=== PATIENT | female | born 1965 | race Caucasian/White ===

== ENCOUNTER → 2016-11-26 | Outpatient (CLI) | payer BC ==
[~2016-11-26] MED LIST: CITA20TA4 PO; DEPA500T2 PO; MAXA10TA14 PO; OXYC1TAB23 PO; REQU2TAB3 PO; VITA200038 PO
--- NOTE | 2016-11-26 11:10 | REP ---
LUMBAR SPINE, FIVE VIEWS: HISTORY: Lumbago. There is no acute fracture or subluxation. The L4-5 and L5-S1 intervertebral discs are decreased in height consistent with disc degeneration. The facet joints are normal in appearance. IMPRESSION: Degenerative change as described above. Signed by Don Salinas MD 11/26/2016 11:12 A
== END ==
LOC: M WUC 10:24
PROVIDERS: ATTEND Physician Assistant
DX: M54.5 Low back pain (principal)

== ENCOUNTER → 2017-08-13 | Outpatient (REF) | payer BC ==
[2017-08-13 12:55] LABS: TOTAL 25(OH) VITAMIN D 19.5 NG/ML (30.0-100.0)
[2017-08-13 12:57] LABS: BASO % 0.1 % (0.0-1.0); HEMATOCRIT 40.7 % (36.0-47.0); HEMOGLOBIN 13.3 g/dl (12.0-16.0); IMMATURE GRANULOCYTE % 0.6 % (0-3.0); LYMPH # 1.7 10^3/uL (1.5-4.5); LYMPH % 13.8 % (24.0-44.0); MEAN CORPUSCULAR HEMOGLOBIN 27.1 pg (27.0-33.0); MEAN CORPUSCULAR HGB CONC 32.7 g/dl (32.0-36.5); MEAN CORPUSCULAR VOLUME 83.1 fl (80.0-96.0); MONO # 0.3 10^3/uL (0.0-0.8); MONO % 2.7 % (0.0-5.0); NEUTROPHILS # 10.1 10^3/uL (1.8-7.7); NEUTROPHILS % 82.8 % (36.0-66.0); PLATELET COUNT, AUTOMATED 274 10^3/uL (150-450); RED CELL DISTRIBUTION WIDTH 12.9 % (11.5-14.5); WHITE BLOOD COUNT 12.2 10^3/uL (4.0-10.0)
[2017-08-13 13:13] LABS: ALBUMIN 3.8 GM/DL (3.2-5.2); ALKALINE PHOSPHATASE 89 U/L (45-117); ALT/SGPT 22 U/L (12-78); ANION GAP 13 MEQ/L (8-16); AST/SGOT 15 U/L (7-37); BILIRUBIN,TOTAL 0.4 MG/DL (0.2-1.0); BLOOD UREA NITROGEN 13 MG/DL (7-18); CALCIUM LEVEL 9.4 MG/DL (8.5-10.1); CARBON DIOXIDE LEVEL 23 MEQ/L (21-32); CHLORIDE LEVEL 104 MEQ/L (98-107); CHOLESTEROL LEVEL 267 MG/DL (<200); CHOLESTEROL RISK RATIO 3.869 (<5); CREATININE FOR GFR 0.74 MG/DL (0.55-1.30); GLOMERULAR FILTRATION RATE > 60.0 (>51); GLUCOSE, FASTING 102 MG/DL (70-100); HDL CHOLESTEROL 69 MG/DL (>40); LDL CHOLESTEROL 174.4 MG/DL (<100); NON-HDL-C 198 MG/DL; POTASSIUM SERUM 4.6 MEQ/L (3.5-5.1); SODIUM LEVEL 140 MEQ/L (136-145); TOTAL PROTEIN 7.6 GM/DL (6.4-8.2); TRIGLYCERIDES LEVEL 118 MG/DL (<150); VALPROIC ACID (DEPAKOTE) 22.8 UG/ML (50.0-100.0)
== END ==
LOC: M LABDRAW1 10:39
DX: F43.23 Adjustment disorder with mixed anxiety and depressed mood (principal); E78.2 Mixed hyperlipidemia; G25.81 Restless legs syndrome; E03.9 Hypothyroidism, unspecified; E55.9 Vitamin D deficiency, unspecified
CPT/HCPCS: 84443

== ENCOUNTER 2017-10-13 14:45 | Emergency (ER) | payer BC ==
[2017-10-13] MEDS: PERCOCET 5MG/325MG TAB PO (15:36)
== END 2017-10-13 17:10 | disposition home or self-care (01) ==
LOC: M ED 14:45
DX: M79.641 Pain in right hand (principal); G43.909 Migraine, unspecified, not intractable, without status migrainosus; E78.00 Pure hypercholesterolemia, unspecified; Z79.899 Other long term (current) drug therapy; Z88.2 Allergy status to sulfonamides
CPT/HCPCS: 73110

== ENCOUNTER 2018-03-02 18:18 | Emergency (ER) | payer BC ==
[2018-03-02 18:55] LABS: HEMATOCRIT 39.5 % (36.0-47.0); HEMOGLOBIN 13.2 g/dl (12.0-15.5); MEAN CORPUSCULAR HEMOGLOBIN 27.1 pg (27.0-33.0); MEAN CORPUSCULAR HGB CONC 33.4 g/dl (32.0-36.5); MEAN CORPUSCULAR VOLUME 81.1 fl (80.0-96.0); PLATELET COUNT, AUTOMATED 261 10^3/uL (150-450); RED BLOOD COUNT 4.87 10^6/uL (4.00-5.40); RED CELL DISTRIBUTION WIDTH 13.4 % (11.5-14.5)
[2018-03-02 18:56] LABS: ADD MANUAL DIFFER YES; DIFF SLIDE NUMBER 144; POSITIVE DIFF POS FLAG
[2018-03-02 18:58] LABS: INR 0.89; PROTHROMBIN TIME 12.1 SECONDS (12.1-14.4)
[2018-03-02 19:10] LABS: ALBUMIN 4.1 GM/DL (3.2-5.2); ALBUMIN/GLOBULIN RATIO 1.05 (1.00-1.93); ALKALINE PHOSPHATASE 107 U/L (45-117); ALT/SGPT 34 U/L (12-78); ANION GAP 9 MEQ/L (8-16); AST/SGOT 16 U/L (7-37); BILIRUBIN,DIRECT 0.1 MG/DL (0.0-0.2); BILIRUBIN,TOTAL 0.5 MG/DL (0.2-1.0); BLOOD UREA NITROGEN 12 MG/DL (7-18); CALCIUM LEVEL 8.9 MG/DL (8.5-10.1); CARBON DIOXIDE LEVEL 26 MEQ/L (21-32); CHLORIDE LEVEL 106 MEQ/L (98-107); CPK CREATINE PHOSPHOKINASE 150 U/L (26-192); CREATININE FOR GFR 0.75 MG/DL (0.55-1.30); GLOMERULAR FILTRATION RATE > 60.0 (>51); GLUCOSE, FASTING 84 MG/DL (70-100); LIPASE 229 U/L (73-393); POTASSIUM SERUM 3.8 MEQ/L (3.5-5.1); SODIUM LEVEL 141 MEQ/L (136-145); TROPONIN I < 0.02 NG/ML (< 0.10)
[2018-03-02 19:16] LABS: CK-MB VALUE MASS 1.1 NG/ML (<3.6); MB/CK RELATIVE INDEX 0.73 (< OR =4); NT-PRO BNP 109 PG/ML (<125)
[2018-03-02] MEDS ORDERED: ISOVUE-370 76% 100ML VIAL (Q9967) As Ordered (19:28)
[2018-03-02 19:44] LABS: ATYPICAL LYMPH 9 % (0-5); BASOPHILS 1 % (0-4); EOSINOPHILS 6 % (0-5); LYMPHOCYTES 37 % (16-52); MONOCYTES 4 % (0-8); NEUTROPHILS 43 % (35-75)
[2018-03-02 19:45] LABS: PLATELET ESTIMATE NORMAL (NORMAL)
[2018-03-02 19:50] LABS: FREE T4 0.92 NG/DL (0.76-1.46)
[2018-03-02] MEDS: NITROGLYCERIN 0.4 MG SUBL TABLET SL (19:55)
[2018-03-02] MEDS: ASPIRIN 81 MG CHEW TABLET PO (19:55)
[2018-03-03 00:27] LABS: CPK CREATINE PHOSPHOKINASE 136 U/L (26-192); TROPONIN I < 0.02 NG/ML (< 0.10)
[2018-03-03 00:28] LABS: CK-MB VALUE MASS < 1.0 NG/ML (<3.6); MB/CK RELATIVE INDEX 0.73 (< OR =4)
== END 2018-03-03 00:46 | disposition home or self-care (01) ==
LOC: M ED 03-03 00:46
DX: R07.9 Chest pain, unspecified (principal); N63.0 Unspecified lump in unspecified breast; R91.1 Solitary pulmonary nodule; R06.02 Shortness of breath; E78.5 Hyperlipidemia, unspecified; F41.9 Anxiety disorder, unspecified; Z86.19 Personal history of other infectious and parasitic diseases; Z82.49 Family history of ischemic heart disease and other diseases of the circulatory system; Z88.2 Allergy status to sulfonamides; Z79.899 Other long term (current) drug therapy
CPT/HCPCS: Q9967

== ENCOUNTER → 2018-03-06 | Outpatient (REF) | payer BC | LOC: M LAB REF 11:01 | DX: R92.0 Mammographic microcalcification found on diagnostic imaging of breast (principal) | CPT/HCPCS: 88305 ==

== ENCOUNTER 2018-08-11 12:26 | Emergency (ER) | payer OTHER, BC ==
[~2018-08-11] VITALS: Ht 160 cm; Wt 90.9 kg
[~2018-08-11 12:26] MED LIST changes: +ACET500L PO; +ATOR40TA75 PO; +VITA50005
[2018-08-11] MEDS ORDERED: NORCO, ANEXSIA 5/325MG TABLET (HYDROcodone/ACETAMINOPHEN) PO ONE (14:00)
--- NOTE | 2018-08-11 14:45 | REP ---
UNILATERAL LEFT RIBS, PA CHEST, FIVE VIEWS: HISTORY: Fall. COMPARISON: 03/02/2018. The lungs are clear. The heart is normal in size. The pulmonary vasculature is normal in appearance. The bony structure is intact. IMPRESSION: No acute disease. Electronically Signed by Don Salinas MD 08/11/2018 02:49 P
[2018-08-11] MEDS ORDERED: ACET30TAB PO (14:51)
[2018-08-11 14:57] VITALS: BP 126/73
--- NOTE | 2018-08-11 15:08 | REP ---
LEFT HIP, AP PELVIS, THREE VIEWS: HISTORY: Fall. There is no acute fracture or dislocation. The joint spaces are normal in appearance. IMPRESSION: There is no acute fracture or dislocation. Electronically Signed by Don Salinas MD 08/11/2018 03:45 P
== END 2018-08-11 15:00 | disposition home or self-care (01) ==
LOC: M ED 12:26
DX: S70.02XA Contusion of left hip, initial encounter (principal); S20.212A Contusion of left front wall of thorax, initial encounter; W00.0XXA Fall on same level due to ice and snow, initial encounter; Y92.89 Other specified places as the place of occurrence of the external cause; Y99.0 Civilian activity done for income or pay; R51 Headache; F41.9 Anxiety disorder, unspecified; F32.9 Major depressive disorder, single episode, unspecified; Z88.2 Allergy status to sulfonamides; Z79.899 Other long term (current) drug therapy

== ENCOUNTER → 2018-12-24 | Outpatient (REF) ==
[~2018-12-24] MED LIST changes: +ACET-716 PO; -CITA20TA4 PO; +CITA20TA6 PO
== END ==
LOC: M LAB 08:49
PROVIDERS: ATTEND Nurse Practitioner Adult Health
DX: Z00.00 Encounter for general adult medical examination without abnormal findings (principal)

== ENCOUNTER 2019-08-10 23:21 | Inpatient (IN) | payer BC, OTHER ==
[~2019-08-10] VITALS: Ht 160 cm; Wt 85.9 kg
[2019-08-11] VITALS (10 sets, daily range): BP systolic 99–125; BP diastolic 51–70
[2019-08-11] MEDS ORDERED: ONDANSETRON 4MG/2ML VIAL (J2405) IV ONE (02:00)
[2019-08-11] MEDS ORDERED: methylPREDNISolone INJ 125 MG/2 ML VIAL (J2930) IV ONE (02:00)
[2019-08-11] MEDS: MORPHINE 4 MG/ML 1ML VIAL/SYRINGE (J2270) IV PRN ×2 (02:10→06:06)
[2019-08-11 02:18] LABS: BASO % 0.2 % (0.0-1.0); EOS # 0.3 10^3/uL (0.0-0.5); HEMATOCRIT 40.9 % (36.0-47.0); HEMOGLOBIN 13.5 g/dl (12.0-15.5); LYMPH % 23.8 % (24.0-44.0); MEAN CORPUSCULAR HEMOGLOBIN 27.6 pg (27.0-33.0); MEAN CORPUSCULAR VOLUME 83.6 fl (80.0-96.0); MONO # 1.5 10^3/uL (0.0-0.8); MONO % 11.5 % (0.0-5.0); NEUTROPHILS # 7.9 10^3/uL (1.5-8.5); PLATELET COUNT, AUTOMATED 256 10^3/uL (150-450); RED BLOOD COUNT 4.89 10^6/uL (4.00-5.40); WHITE BLOOD COUNT 12.7 10^3/uL (4.0-10.0)
[2019-08-11 02:47] LABS: CALCIUM LEVEL 9.5 MG/DL (8.5-10.1); CREATININE FOR GFR 1.1 MG/DL (0.55-1.30); GLOMERULAR FILTRATION RATE 55.5 (>51)
[2019-08-11] MEDS ORDERED: ISOVUE-370 76% 100ML VIAL (Q9967) As Ordered ONE (02:52)
--- NOTE | 2019-08-11 04:17 | REPVR ---
PROCEDURE INFORMATION: Exam: CT Maxillofacial With Contrast Exam date and time: 08/11/2019 1:51 AM Age: 54 years old Clinical indication: Jaw pain; Prior surgery; Surgery date: Post-operative (0-2 days); Surgery type: Tooth ext; Additional info: Left sided facial swelling and pain. Recent dental extract TECHNIQUE: Imaging protocol: Computed tomography images of the face with intravenous contrast. Radiation optimization: All CT scans at this facility use at least one of these dose optimization techniques: automated exposure control; mA and/or kV adjustment per patient size (includes targeted exams where dose is matched to clinical indication); or iterative reconstruction. Contrast material: ISO; Contrast volume: 75 ml; Contrast route: AC; COMPARISON: No relevant prior studies available. FINDINGS: Orbits: Orbits are normal. Globes are unremarkable. Sinuses: Normal. No air-fluid levels. Bones/joints: No acute fracture. Lymph nodes: There are several borderline left submandibular nodes. Submandibular/Parotid glands: The left submandibular gland is slightly increased in size compared to the right with induration around the gland. Soft tissues: Left submandibular and left perimandibular subcutaneous edema. There is asymmetric soft tissue adjacent to the posterior left mandibular body in the apartment house manager space with edematous surrounding fat with slight induration extending along the medial aspect of the left mandibular body. There is a low-attenuation area adjacent to the posterior mandibular body suggesting an abscess measuring approximately the 9 x 6 x 12 mm. This appears to be near a recently extracted tooth # 18. IMPRESSION: 1. Recent extraction of tooth # 18. 2. Abscess along the lingual aspect of the posterior left mandibular body near the extracted tooth measuring 9 x 6 x 12 mm with surrounding soft tissue confluence and induration within the left apartment house manager space with some induration extending along the lingual aspect of the left mandibular body. Concern is for Emre angina. 3. There is borderline left submandibular adenopathy which is likely reactive. 4. There is slight left submandibular and perimandibular subcutaneous edema and may be some secondary inflammation of the left submandibular gland. Electronically signed by: Jefferson Rodriguez On 08/11/2019 04:16:31 AM
[2019-08-11] MEDS ORDERED: AMPICILLIN SOD/SULBACTAM SOD 3 GM in D5W MINI-BAG PLUS 100 ML IV ONE (05:00)
--- NOTE | 2019-08-11 06:01 | HPEPDOC ---
General Date of Admission 08/11/19 Date of Service: Aug 11, 2019 Chief Complaint The patient is a 54-year-old female admitted with a reason for visit of Mouth Pain. Source: Patient Exam Limitations: Clinical conditions Timing/Duration: Day(s) Severity: Moderate History of Present Illness Patient's 54 years old female with past medical history of migraine presented to the hospital with difficulties in swallowing. Patient stated that on Saturday left lower tooth was extracted. Patient developed swelling, she went to her dentist who prescribed her amoxicillin and NSAIDs. However the swelling became progressi vely worse and patient started developing difficulties in swallowing. Today patient developed severe pain of the left part of her jaw, inability to open her mouth wide and eat normal food. In ER patient was found to have tachycardia, leukocytosis of 12.7. CT showed Abscess along the lingual aspect of the posterior left mandibular body near the extracted tooth measuring 9 x 6 x 12 mm with surrounding soft tissue confluence and induration within the left cartoon animator space with some induration extending along the lingual aspect of the left mandibular body. Patient denied fever, chest pain, palpitations, abdominal pain, diarrhea or dysuria. Dr. Jenkins was contacted by phone, he will proceed with incision and drainage in the morning Home Medications Scheduled Citalopram Hydrobromide (Citalopram HBr) 20 Mg Tab, 20 MG PO DAILY, (Reported) Divalproex Sodium (Depakote ER) 500 Mg Tab, 500 MG PO QHS, (Reported) Ergocalciferol (Vitamin D2) (Vitamin D2) 50,000 Unit Cap, weekly, (Reported) Ropinirole HCl (Requip) 2 Mg Tab, 2 MG PO DAILY, (Reported) Scheduled PRN Rizatriptan Benzoate (Maxalt) 10 Mg Tab, 10 MG PO PRN PRN for HEADACHE, (Reported) Allergies Coded Allergies: Sulfa (Sulfonamide Antibiotics) (Verified Allergy, Unknown, 08/10/19) Past Medical History Medical History Migraine Family History I personally reviewed family history and found not pertinent Social History * Smoker: Denies Alcohol: Denies Drugs: denies A-FIB/CHADSVASC A-FIB History Current/History of A-Fib/PAF?: No Current PO Anticoag Therapy: No Review of Systems Constitutional: Denies: Chills, Fever Eyes: Denies: Pain, Vision change ENT: Reports: Dysphagia, Sore Throat, Other Symptoms (left mandibular pain) Skin: Denies: Rash Pulmonary: Denies: Dyspnea, Cough Cardiovascular: Denies: Chest Pain, Palpitations Gastrointestinal: Denies: Nausea, Vomiting Genitourinary: Denies: Dysuria, Frequency Hematologic: Denies: Bruising, Bleeding Excessively Endocrine: Denies: Polydipsia, Polyphagia Musculoskeletal: Denies: Neck Pain Neurological: Denies: Weakness, Numbness Psych: Reports: Mood Normal Physical Examination General Exam: Positive: Alert, Cooperative ENT Exam: Positive: Pharyngeal Edema, Other ENT (patient can't open wide her mouth); Negative: Pharynx Normal Neck Exam: Positive: Supple; Negative: JVD Chest Exam: Positive: Clear to auscultation Heart Exam: Positive: Tachycardic Telemetry: Positive: No significant arrhythmia, Sinus Abdomen Exam: Positive: Normal bowel sounds Extremity Exam: Negative: Clubbing, Cyanosis Skin Exam: Positive: Nl turgor and temperature Neuro Exam: Positive: Strength at 5/5 X4 ext, Cranial Nerves 3-12 NL Psych Exam: Positive: Mental status NL Vital Signs Vital Signs Date Time Temp Pulse Resp B/P (MAP) Pulse Ox O2 Delivery O2 Flow Rate FiO2 08/11/19 02:10 20 100 08/11/19 01:55 08/10/19 23:22 97.8 100 Room Air Laboratory Data Labs 24H Laboratory Tests 2 08/11/19 02:08: Immature Granulocyte % (Auto) 0.5, Neutrophils (%) (Auto) 62.0, Lymphocytes (%) (Auto) 23.8L, Monocytes (%) (Auto) 11.5H, Eosinophils (%) (Auto) 2.0, Basophils (%) (Auto) 0.2, Neutrophils # (Auto) 7.9, Lymphocytes # (Auto) 3.0, Monocytes # (Auto) 1.5H, Eosinophils # (Auto) 0.3, Basophils # (Auto) 0.0, Nucleated Red Blood Cells % (auto) 0.0, Anion Gap 9, Glomerular Filtration Rate 55.5, Calcium Level 9.5 CBC/BMP Laboratory Tests 08/11/19 02:08 Microbiology Microbiology 08/11/19 Blood Culture, Received Pending 08/11/19 Blood Culture, Received Pending Assessment/Plan Patient's 54 years old female with past medical history of migraine presented to the hospital with difficulties in swallowing. Patient stated that on Saturday left lower tooth was extracted. Today patient developed severe pain of the left part of her jaw, inability to open her mouth wide and eat normal food. In ER patient was found to have tachycardia, leukocytosis of 12.7. CT showed Abscess along the lingual aspect of the posterior left mandibular body near the extracted tooth measuring 9 x 6 x 12 mm with surrounding soft tissue Problems (1) Sepsis Status: Acute Problem Text: Secondary to left mandibular abscess after tooth extraction Patient has tachycardia, leukocytosis and tachypnea IV fluid Unasyn Appreciate/agree with oropharyngeal surgeon consult Appreciate/agree with ENT consult. ER tried to contact , he did not answer the phone. Local Cristobal was sent to his home to inform him to call back to ER (2) Emre's angina Status: Acute Problem Text: See above Plan / VTE VTE Prophylaxis Ordered?: Yes LEO LECHUGA DO Aug 11, 2019 06:01
[2019-08-11] MEDS: NS 1,000 ML IV SCH ×2 (06:05→08:10)
[2019-08-11] MEDS ORDERED: ACET-683 PO (06:10)
[2019-08-11] MEDS ORDERED: IBUP200T45 PO (06:10)
[2019-08-11] MEDS ORDERED: VITA50005 PO (06:10)
[2019-08-11] MEDS ORDERED: ROPI2TAB3 PO (06:10)
[2019-08-11] MEDS ORDERED: AMOX500T PO (06:10)
[2019-08-11] MEDS ORDERED: NS 1,000 ML IV ONE (06:15)
[2019-08-11] MEDS: HEPARIN SOD (PORCINE) 5000 UNITS/ML VIAL (J1644 PER 1000UNITS) SC SCH ×2 (07:07→18:33)
[2019-08-11] MEDS: traMADol 50 MG TAB PO PRN ×3 (08:30→23:11)
[2019-08-11] MEDS ORDERED: MORPHINE 4 MG/ML 1ML VIAL/SYRINGE (J2270) IV ONE (09:00)
[2019-08-11] MEDS: dexameTHASONE 4 MG/ML 1ML VIAL (J1100) IV SCH ×2 (09:24→18:31)
[2019-08-11] MEDS ORDERED: CLINDAMYCIN 600 MG in IV 1 EA IV SCH (10:00)
--- NOTE | 2019-08-11 10:07 | IPNPDOC ---
Text Note Date of Service The patient was seen on 08/11/19. NOTE ENT I have seen patient and seen CT scan. Patient has a 1 x 0.5 cm area adjacent to lingual surface of mandible that may be early abscess The cellulitis of th masseter space is not great and should respond to IV ABX. Her airway is secure She needs a dental professional to be involved with the submandibular space infection and rule out a retained root or other pathology responsible for the POST EXTRACTION infection. I have added some abx to the program. This is mostly cellulitis and should respond to IV ABX if there is no retained dental infection which I am not able to determine VS,Fishbone, I+O VS, Fishbone, I+O Laboratory Tests 08/11/19 02:08 Vital Signs Date Time Temp Pulse Resp B/P (MAP) Pulse Ox O2 Delivery O2 Flow Rate FiO2 08/11/19 09:08 16 08/11/19 08:00 98.6 94 111/57 (75) 97 Room Air ORQUIDEA OSBORNE MD Aug 11, 2019 10:07
[2019-08-11] MEDS ORDERED: AMPICILLIN SOD/SULBACTAM SOD 1.5 GM in D5W MINI-BAG PLUS 50 ML IV SCH (12:00)
--- NOTE | 2019-08-11 15:38 | REP ---
Clinical: Left mandibular abscess. Technique: Two Panorex views. Findings: The patient appears to be status post left distal lower molar extraction. No obvious dental abscess identified within the mandible. Impression: Left lower molar extraction. No obvious mandibular abscess. Electronically Signed by All Romo MD 08/11/2019 03:30 P
[2019-08-11] MEDS ORDERED: SUCCINYLCHOLINE 100 MG/5 ML SYRINGE (J0330) As Ordered ONE (15:42)
[2019-08-11] MEDS ORDERED: propofoL 200 MG/20 ML VIAL As Ordered ONE (15:42)
[2019-08-11] MEDS ORDERED: LIDOCAINE 2% INJ 100 MG/5 ML SDV (FOR ANES.) As Ordered ONE (15:42)
[2019-08-11] MEDS ORDERED: LIDOCAINE W/EPINEPHRINE 1% 20ML VIAL As Ordered ONE (15:43)
[2019-08-11] MEDS ORDERED: fentaNYL 100 MCG/2 ML INJECTION (J3010) As Ordered ONE (15:44)
[2019-08-11] MEDS ORDERED: MIDAZOLAM INJ 2 MG/2 ML VIAL (J2250) As Ordered ONE (15:44)
[2019-08-11] MEDS ORDERED: dexameTHASONE 4 MG/ML 1ML VIAL (J1100) As Ordered ONE (15:50)
[2019-08-11] MEDS ORDERED: ROCURONIUM BROMIDE 50 MG/5 ML VIAL As Ordered ONE (15:50)
[2019-08-11] MEDS ORDERED: ONDANSETRON 4MG/2ML VIAL (J2405) As Ordered ONE (15:50)
[2019-08-11] MEDS ORDERED: SUGAMMADEX SODIUM 500 MG/5 ML VIAL (BRIDION) As Ordered ONE (16:12)
[2019-08-11] MEDS ORDERED: KETOROLAC 30 MG/ML VIAL (J1885) IV PRN (17:00)
[2019-08-11] MEDS: LR 1,000 ML IV SCH (17:00)
[2019-08-11] MEDS ORDERED: PERCOCET 5MG/325MG TAB PO PRN (17:00)
[2019-08-11] MEDS ORDERED: ONDANSETRON 4MG/2ML VIAL (J2405) IV PRN (17:00)
[2019-08-11] MEDS ORDERED: LR 1,000 ML IV SCH (17:00)
[2019-08-11] MEDS ORDERED: fentaNYL 100 MCG/2 ML INJECTION (J3010) IV PRN (17:00)
[2019-08-11] MEDS ORDERED: KETOROLAC 30 MG/ML VIAL (J1885) As Ordered ONE (17:12)
[2019-08-11] MEDS: AMPICILLIN SOD/SULBACTAM SOD 1.5 GM in D5W MINI-BAG PLUS 50 ML IV SCH (19:44)
--- NOTE | 2019-08-11 23:55 | IPNPDOC ---
Text Note Date of Service The patient was seen on 08/11/19. NOTE Subjective: -Uncomfortable, visibly upset that she does not have a current coherent treatment plan for her worsening swollen jaw -Reporting 8/10 pain -Hemodynamically stable and afebrile overnight Interim events: -When I came on this morning, there had been ENT and oral surgery consults and it was unclear if surgery was to be done and by whom. -By this afternoon, it was concluded that Dr. Jenkins who drain and place a drain for the abscess and we would continue unasyn and dexamethasone Objective: Vitals: hemodynamically stable and afebrile, see below Gen: uncomfortable in moderate distress. Reporting 8/10 jaw/neck pain. well developed, well nourished. HEENT: NCAT, L neck swollen, exquisitely tender, cautious mouth opening, reactive palpable adenopathy on left neck Pulm: CTAB Cardiac: RRR, no mrg Abd: normoactive, soft, obese, NTND Ext: no edema, WWP Neuro: AOx3, nonfocal examination Labs: Reviewed WNL Assessment: 54 yo W who recently had a tooth extraction 6d prior who presented with worsening pain and swelling and found to have an abscess in the lingual aspect of the posterior left mandibular body near the extracted tooth. Mandibular abscess: -with Emre's angina secondary to left mandibular abscess after tooth extraction -To be drained with drain placement with Dr. Jenkins this afternoon -Dex 10Q8 for [address] Jenkins -Unasyn -Appreciate oropharyngeal surgeon consult -Appreciate ENT consult. -Fluids -Pain management PRN VS,Fishbone, I+O VS, Fishbone, I+O Laboratory Tests 08/11/19 02:08 Vital Signs Date Time Temp Pulse Resp B/P (MAP) Pulse Ox O2 Delivery O2 Flow Rate FiO2 08/11/19 23:11 16 08/11/19 21:50 98.5 100 102/58 (73) 95 Room Air 08/11/19 17:00 2 DAMIÁN MCGOWAN MD Aug 11, 2019 23:55
[2019-08-12] MEDS: AMPICILLIN SOD/SULBACTAM SOD 1.5 GM in D5W MINI-BAG PLUS 50 ML IV SCH ×4 (02:53→20:12)
[2019-08-12] MEDS: dexameTHASONE 4 MG/ML 1ML VIAL (J1100) IV SCH ×2 (02:53→10:00)
[2019-08-12] MEDS ORDERED: KETOROLAC 30 MG/ML VIAL (J1885) IV ONE (03:15)
[2019-08-12] MEDS: LR 1,000 ML IV SCH ×2 (03:41→13:00)
[2019-08-12 04:00] VITALS: BP 112/64
[2019-08-12] MEDS: HEPARIN SOD (PORCINE) 5000 UNITS/ML VIAL (J1644 PER 1000UNITS) SC SCH ×2 (06:25→18:09)
[2019-08-12] MEDS: traMADol 50 MG TAB PO PRN ×3 (06:28→18:49)
[2019-08-12 07:39] LABS: HEMATOCRIT 32.7 % (36.0-47.0); MEAN CORPUSCULAR HEMOGLOBIN 28.3 pg (27.0-33.0); MEAN CORPUSCULAR HGB CONC 32.7 g/dl (32.0-36.5); MEAN CORPUSCULAR VOLUME 86.5 fl (80.0-96.0); PLATELET COUNT, AUTOMATED 225 10^3/uL (150-450); RED BLOOD COUNT 3.78 10^6/uL (4.00-5.40); WHITE BLOOD COUNT 15.9 10^3/uL (4.0-10.0)
[2019-08-12 08:00] VITALS: BP 113/62
[2019-08-12 08:00] LABS: HEMOGLOBIN 10.7 g/dl (12.0-15.5)
[2019-08-12 08:04] LABS: BLOOD UREA NITROGEN 20 MG/DL (7-18); CALCIUM LEVEL 9.1 MG/DL (8.5-10.1); CARBON DIOXIDE LEVEL 25 MEQ/L (21-32); CHLORIDE LEVEL 112 MEQ/L (98-107); CREATININE FOR GFR 0.84 MG/DL (0.55-1.30); GLOMERULAR FILTRATION RATE > 60.0 (>51); GLUCOSE, FASTING 142 MG/DL (70-100); MAGNESIUM LEVEL 2.3 MG/DL (1.8-2.4); POTASSIUM SERUM 4.2 MEQ/L (3.5-5.1); SODIUM LEVEL 142 MEQ/L (136-145)
[2019-08-12] MEDS: ONDANSETRON 4MG/2ML VIAL (J2405) IV PRN (08:07)
--- NOTE | 2019-08-12 11:22 | RO ---
DATE OF PROCEDURE: 08/11/2019 PREPROCEDURE DIAGNOSIS: Left facial abscess. POSTPROCEDURE DIAGNOSIS: Left facial abscess. PROCEDURE: Incision and drainage of left facial abscess. SURGEON: Salvatore Rodas MD BENCH ASSEMBLER BATTERY: None ANESTHESIA: General. ESTIMATED BLOOD LOSS: 10 mL. COMPLICATIONS: None. SPECIMENS: None. DRAINS: 1/4 inch [place] drain. 54 year old female presented to ED with chief complain of pain and swelling on left mandible. Upon clinical and radiographic examination, it was determined that there was a left facial abscess. Finding explained to patient. All R/B/A explained. All questions answered. Informed consent obtained. Patient brought to operating room and placed in a supine position. All monitors were placed. Patient was induced by anesthesia and intubated orally using a 7-0 oral ivory. Tube placement confirmed using CO2 monitor and positive capnography. Surgeon went to scrub and approach the patient in a sterile fashion. All steriles drapes were placed. Moist vaginal packing was used as a throat pack and bite block placed on right side of mouth. 4cc of lidocaine 1% with 1/100,000 epinephrine administered by left inferior alveolar, lingual and long buccal nerve blocks. Tolerated well. No complications. Using the extraction socket (site) of tooth #18, a surgical curette was used staying on the lingual plate towards the inferior border of the mandible. Exudate obtained and loculation evacuated. Area irrigated with saline and a 1/4 inch chelle drain placed. Chelle drain secured using 3-0 silk. Oral cavity irrigated with sterile water. Throat pack removed and patient extubated when criteria were meet by anesthesia. Patient transferred to recovery in stable condition. SHERIF Howard
[2019-08-12 12:00] VITALS: BP 134/72
[2019-08-12] MEDS: PERCOCET 5MG/325MG TAB PO PRN ×2 (15:28→21:27)
[2019-08-12 16:00] VITALS: BP 129/67
--- NOTE | 2019-08-12 16:24 | IPNPDOC ---
Text Note Date of Service The patient was seen on 08/12/19. NOTE Subjective: -Swelling much improved, and swallowing has also improved -Reporting that pain is now much improved to 2/10 -Hemodynamically stable and afebrile overnight Interim events: -had drainage of purulent material yesterday by Dr. Jenkins. Has drain in place. Objective: Vitals: hemodynamically stable and afebrile, see below Gen: In no acute distress. Reporting 2/10 jaw/neck pain. well developed, well nourished. HEENT: NCAT, L neck swelling has much improved, stable reactive palpable adenopathy on left neck Pulm: CTAB Cardiac: RRR, no mrg Abd: normoactive, soft, obese, NTND Ext: no edema, WWP Neuro: AOx3, nonfocal examination Labs: Reviewed, Hgb downtrended to 10.7, Hct 32.7. MRSA negative Assessment: 54 yo W who recently had a tooth extraction 6d prior who presented with worsening pain and swelling and found to have an abscess in the lingual aspect of the posterior left mandibular body near the extracted tooth now s/p drainage with drain in place with much improved exam and pain. Mandibular abscess: -with Emre's angina secondary to left mandibular abscess after tooth extraction -s/p drainage with drain placement by Dr. Jenkins 08/11 -Will now dc Dex 10Q8 -continue Unasyn -Appreciate oropharyngeal surgeon consult -Appreciate ENT consult -Will dc fluids now, tolerating PO -Pain management with 1 tab percocet Q6HP for severe pain, tramadol 50Q6P for mild to moderate pain VS,Fishbone, I+O VS, Fishbone, I+O Laboratory Tests 08/12/19 07:07 Vital Signs Date Time Temp Pulse Resp B/P (MAP) Pulse Ox O2 Delivery O2 Flow Rate FiO2 08/12/19 15:28 16 Room Air 08/12/19 12:00 98.5 102 134/72 (92) 96 08/11/19 17:00 2 I&O- Last 24 Hours up to 6 AM 08/12/19 06:00 Intake Total 3330 ml Output Total 1125 ml Balance 2205 ml DAMIÁN MCGOWAN MD Aug 12, 2019 16:24
[2019-08-12 20:00] VITALS: BP 115/61
[2019-08-13] VITALS: BP 121/65
[2019-08-13] MEDS: ONDANSETRON 4MG/2ML VIAL (J2405) IV PRN (01:09)
[2019-08-13] MEDS: AMPICILLIN SOD/SULBACTAM SOD 1.5 GM in D5W MINI-BAG PLUS 50 ML IV SCH ×3 (02:44→13:30)
[2019-08-13 04:00] VITALS: BP 114/65
[2019-08-13] MEDS: PERCOCET 5MG/325MG TAB PO PRN ×3 (06:23→17:25)
[2019-08-13] MEDS: HEPARIN SOD (PORCINE) 5000 UNITS/ML VIAL (J1644 PER 1000UNITS) SC SCH ×2 (06:24→18:50)
[2019-08-13 08:00] VITALS: BP 126/66
--- NOTE | 2019-08-13 08:28 | IPNPDOC ---
Text Note Date of Service The patient was seen on 08/13/19. NOTE Subjective: -Swelling much improved - pain iswell controlled - Hemodynamically stable and afebrile overnight Interim events: -tolerated full liquid diet -DC'd fluids and dex Objective: Vitals: hemodynamically stable and afebrile, see below Gen: In no acute distress. Mild jaw/neck pain. well developed, well nourished. HEENT: NCAT, L neck swelling has much improved, stable reactive palpable adenopathy on left neck Pulm: CTAB Cardiac: RRR, no mrg Abd: normoactive, soft, obese, NTND Ext: no edema, WWP Neuro: AOx3, nonfocal examination Labs: Reviewed, pending AM labs Assessment: 54 yo W who recently had a tooth extraction 6d prior who presented with worsening pain and swelling and found to have an abscess in the lingual aspect of the posterior left mandibular body near the extracted tooth now s/p drainage with drain in place with much improved exam and pain, tolerating diet, afebrile on unasyn. Mandibular abscess: -with Emre's angina secondary to left mandibular abscess after tooth extraction -s/p dexamethasone, now dc'd -continue Unasyn day 3 -Appreciate oropharyngeal surgeon consult -Appreciate ENT consult -Pain management with 1 tab percocet Q6HP for severe pain, tramadol 50Q6P for mild to moderate pain -advancing diet to regular DVT ppx: heparin VS,Fishbone, I+O VS, Fishbone, I+O Vital Signs Date Time Temp Pulse Resp B/P (MAP) Pulse Ox O2 Delivery O2 Flow Rate FiO2 08/13/19 06:53 16 08/13/19 06:23 Room Air 08/13/19 04:00 97.4 74 114/65 (81) 96 08/11/19 17:00 2 I&O- Last 24 Hours up to 6 AM 08/13/19 06:00 Intake Total 3065 ml Output Total 1750 ml Balance 1315 ml DAMÁIN MCGOWAN MD Aug 13, 2019 08:28
[2019-08-13 09:06] LABS: HEMATOCRIT 35.1 % (36.0-47.0); HEMOGLOBIN 11.2 g/dl (12.0-15.5); MEAN CORPUSCULAR HEMOGLOBIN 27.9 pg (27.0-33.0); MEAN CORPUSCULAR HGB CONC 31.9 g/dl (32.0-36.5); MEAN CORPUSCULAR VOLUME 87.3 fl (80.0-96.0); PLATELET COUNT, AUTOMATED 233 10^3/uL (150-450); RED BLOOD COUNT 4.02 10^6/uL (4.00-5.40); WHITE BLOOD COUNT 15.2 10^3/uL (4.0-10.0)
[2019-08-13 09:36] LABS: BLOOD UREA NITROGEN 17 MG/DL (7-18); CALCIUM LEVEL 8.9 MG/DL (8.5-10.1); CARBON DIOXIDE LEVEL 27 MEQ/L (21-32); CHLORIDE LEVEL 107 MEQ/L (98-107); CREATININE FOR GFR 0.82 MG/DL (0.55-1.30); GLOMERULAR FILTRATION RATE > 60.0 (>51); GLUCOSE, FASTING 135 MG/DL (70-100); POTASSIUM SERUM 3.8 MEQ/L (3.5-5.1); SODIUM LEVEL 140 MEQ/L (136-145)
[2019-08-13] MEDS: traMADol 50 MG TAB PO PRN ×2 (12:22→20:16)
[2019-08-13 16:00] VITALS: BP 121/80
[2019-08-13 20:00] VITALS: BP 121/70
[2019-08-13] MEDS: AMPICILLIN SOD/SULBACTAM SOD 3 GM in D5W MINI-BAG PLUS 100 ML IV SCH (20:16)
[2019-08-14] VITALS: BP 131/84
[2019-08-14] MEDS: PERCOCET 5MG/325MG TAB PO PRN (00:13)
[2019-08-14] MEDS: AMPICILLIN SOD/SULBACTAM SOD 3 GM in D5W MINI-BAG PLUS 100 ML IV SCH ×2 (03:59→07:55)
[2019-08-14] MEDS: HEPARIN SOD (PORCINE) 5000 UNITS/ML VIAL (J1644 PER 1000UNITS) SC SCH (06:35)
[2019-08-14 08:00] VITALS: BP 130/73
[2019-08-14] MEDS: traMADol 50 MG TAB PO PRN (08:00)
[2019-08-14 08:26] LABS: HEMATOCRIT 34.9 % (36.0-47.0); HEMOGLOBIN 11.2 g/dl (12.0-15.5); MEAN CORPUSCULAR HEMOGLOBIN 27.7 pg (27.0-33.0); MEAN CORPUSCULAR HGB CONC 32.1 g/dl (32.0-36.5); MEAN CORPUSCULAR VOLUME 86.4 fl (80.0-96.0); PLATELET COUNT, AUTOMATED 211 10^3/uL (150-450); RED BLOOD COUNT 4.04 10^6/uL (4.00-5.40); WHITE BLOOD COUNT 9.2 10^3/uL (4.0-10.0)
[2019-08-14 08:54] LABS: BLOOD UREA NITROGEN 9 MG/DL (7-18); CALCIUM LEVEL 8.5 MG/DL (8.5-10.1); CARBON DIOXIDE LEVEL 34 MEQ/L (21-32); CHLORIDE LEVEL 103 MEQ/L (98-107); CREATININE FOR GFR 0.73 MG/DL (0.55-1.30); GLOMERULAR FILTRATION RATE > 60.0 (>51); GLUCOSE, FASTING 96 MG/DL (70-100); POTASSIUM SERUM 3.7 MEQ/L (3.5-5.1); SODIUM LEVEL 140 MEQ/L (136-145)
[2019-08-14] MEDS ORDERED: TRAM50TA2 PO (10:51)
[2019-08-14] MEDS ORDERED: AMOX875T2 PO (10:51)
--- NOTE | 2019-08-14 11:12 | DS.PDOC ---
Discharge Summary General Date of Admission Aug 11, 2019 at 05:39 Date of Discharge 08/14/2019 Attending Physician: DAMIÁN MCGOWAN MD Specialist/Consultants Involve: ANTON LOVE DMD Discharge Summary PROCEDURES PERFORMED DURING STAY: Incision and drainage of left facial abscess under general anesthesia on 08/11/2019 ADMITTING DIAGNOSES: 1. L facial abscess DISCHARGE DIAGNOSES: 1. Abscess along the lingual aspect of the posterior left mandibular body near the extracted tooth COMPLICATIONS/CHIEF COMPLAINT: Ludwigs Angina. HISTORY OF PRESENT ILLNESS: 54 yo W who recently had a tooth (left #18) extraction that was c/b left facial swelling, for which she represented to her dentist who gave her amoxicillin but after worsening excruciating and development of new fevers she decided to come directly to the ED. HOSPITAL COURSE: She presented with severe pain of the left part of her jaw, inability to open her mouth wide and eat normal food. In the ED she was found to have tachycardia, leukocytosis of 12.[address] showed an abscess along the lingual aspect of the posterior left mandibular body near the extracted tooth measuring 9 x 6 x 12 mm with surrounding soft tissue confluence and induration within the left counseling center director space with some induration extending along the lingual aspect of the left mandibular body. She otherwise denied any chest pain, palpitations, abdominal pain, diarrhea or dysuria. The ED contacted Dr. Jenkins to discuss an incision and drainage who initially deferred to ENT due to positioning of the abscess but after much discussion, proceed with the I&D on day 2 with drainage of purulent material and placement of a drain for 2 days with ongoing unasyn, dexamethasone for swelling and cautious PO as tolerated. She did well and is now being discharged home on augmentin to complete a [address] Jenkins gave her his information to contact him with any complications that she may experience and she will see her PCP within 1 week. DISCHARGE MEDICATIONS: Please see below. ALLERGIES: Please see below. PHYSICAL EXAMINATION ON DISCHARGE: VITAL SIGNS: Please see below. Vitals: hemodynamically stable and afebrile, see below Gen: In no acute distress. Mild jaw/neck pain. well developed, well nourished. HEENT: NCAT, L neck swelling has improved, stable reactive palpable adenopathy on left neck Pulm: CTAB Cardiac: RRR, no mrg Abd: normoactive, soft, obese, NTND Ext: no edema, WWP Neuro: AOx3, nonfocal examination LABORATORY DATA: Please see below. IMAGING: Maxillofacial CT: 1. Recent extraction of tooth # 18. 2. Abscess along the lingual aspect of the posterior left mandibular body near the extracted tooth measuring 9 x 6 x 12 mm with surrounding soft tissue confluence and induration within the left counseling center director space with some induration Panorex orthopantogram: The patient appears to be status post left distal lower molar extraction. No obvious dental abscess identified within the mandible. PROGNOSIS: Good ACTIVITY: As tolerated DIET: Regular DISCHARGE PLAN: Home with augmentin course DISPOSITION: Home DISCHARGE INSTRUCTIONS: 1. Please complete your augmentin course and see your PCP within [address] Jenkins if you develop further swelling, drainage or new worsening pain in your left neck. ITEMS TO FOLLOWUP ON ON OUTPATIENT: 1. L facial abscess resolution DISCHARGE CONDITION: Stable TIME SPENT ON DISCHARGE: 43 minutes. Vital Signs/I&Os Vital Signs Date Time Temp Pulse Resp B/P (MAP) Pulse Ox O2 Delivery O2 Flow Rate FiO2 08/14/19 10:43 18 08/14/19 08:00 97.1 70 130/73 (92) 96 Room Air 08/11/19 17:00 2 I&O- Last 24 Hours up to 6 AM 08/14/19 06:00 Intake Total 2480 ml Output Total 1000 ml Balance 1480 ml Laboratory Data Labs 24H Laboratory Tests 2 08/14/19 08:13: Nucleated Red Blood Cells % (auto) 0.0, Anion Gap 3L, Glomerular Filtration Rate > 60.0, Calcium Level 8.5 CBC/BMP Laboratory Tests 08/14/19 08:13 Microbiology Microbiology 08/11/19 Blood Culture - Preliminary, Resulted No Growth after 72 hours. All specime... 08/11/19 Blood Culture - Preliminary, Resulted No Growth after 72 hours. All specime... Discharge Medications Scheduled Amoxicillin/Potassium Clav (Amox-Clav 875-125 mg Tablet) 1 Each Tablet, 875 MG PO BID Citalopram Hydrobromide (Citalopram HBr) 20 Mg Tab, 20 MG PO DAILY, (Reported) Divalproex Sodium (Depakote ER) 500 Mg Tab, 500 MG PO QHS, (Reported) Ergocalciferol (Vitamin D2) (Vitamin D2) 50,000 Units Cap, 50,000 UNITS PO 1XWK, (Reported) FRIDAYS Scheduled PRN Acetaminophen (Acetaminophen) 500 Mg Tablet, 1,000 MG PO Q6H PRN for PAIN, (Reported) Ibuprofen (Ibu-200) 200 Mg Tablet, 800 MG PO QID PRN for PAIN, (Reported) Rizatriptan Benzoate (Maxalt) 10 Mg Tab, 10 MG PO DAILY PRN for MIGRAINE, (Reported) Ropinirole HCl (Ropinirole HCl) 2 Mg Tablet, 2 MG PO QHS PRN for LEG CRAMPS, (Reported) Tramadol HCl (Tramadol HCl) 50 Mg Tablet, 50 MG PO Q6HP PRN for MODERATE PAIN (PS 5-7) Allergies Coded Allergies: Sulfa (Sulfonamide Antibiotics) (Verified Allergy, Unknown, 08/10/19) DAMIÁN MCGOWAN MD Aug 14, 2019 11:12
[2019-08-14] MEDS ORDERED: AUGMENTIN 875 MG TAB PO SCH (21:00)
== END 2019-08-14 11:25 | disposition home or self-care (01) | DRG 711 ==
LOC: M ED 23:21 → M ED INP 08-11 05:39 → ENRESERV 08-11 06:24 → M PED 08-11 07:19
PROVIDERS: ADMIT Internal Medicine; ATTEND Internal Medicine
PROC: 0W930ZZ Drainage of Oral Cavity and Throat, Open Approach (ICD-10-PCS; principal; 2019-08-11 14:38)
DX: T81.41XA Infection following a procedure, superficial incisional surgical site, initial encounter (principal); K12.2 Cellulitis and abscess of mouth; Z88.2 Allergy status to sulfonamides; Z79.899 Other long term (current) drug therapy; Y83.8 Other surgical procedures as the cause of abnormal reaction of the patient, or of later complication, without mention of misadventure at the time of the procedure

== ENCOUNTER 2019-11-24 19:18 | Emergency (ER) | payer BC ==
[~2019-11-24] VITALS: Ht 160 cm; Wt 87.3 kg
[~2019-11-24 19:18] MED LIST changes: +ACET-683 PO; +AMOX500T PO; +AMOX875T2 PO; +IBUP200T45 PO; +ROPI2TAB3 PO; +TRAM50TA2 PO; +VITA50005 PO
[2019-11-24] MEDS ORDERED: SIMV20TA22 PO (20:26)
[2019-11-24] MEDS ORDERED: DERMABOND TOPICAL SKIN ADHESIVE TOP ONE (21:45)
[2019-11-24] MEDS ORDERED: BOOSTRIX/ADACEL VACCINE (DIPHTH/PERTUSS/ACELL/TETANUS) 0.5ML SYR IM ONE (21:45)
[2019-11-24 22:11] VITALS: BP 127/82
== END 2019-11-24 22:13 | disposition home or self-care (01) ==
LOC: M ED 19:18
DX: S61.212A Laceration without foreign body of right middle finger without damage to nail, initial encounter (principal); W26.8XXA Contact with other sharp object(s), not elsewhere classified, initial encounter; E78.5 Hyperlipidemia, unspecified; F41.9 Anxiety disorder, unspecified; Z79.899 Other long term (current) drug therapy; Z88.2 Allergy status to sulfonamides; Y99.8 Other external cause status; Y92.89 Other specified places as the place of occurrence of the external cause

== ENCOUNTER → 2020-04-13 | Outpatient (CLI) | payer BC ==
[~2020-04-13] MED LIST changes: +SIMV20TA22 PO
[2020-04-13 18:27] LABS: BASO % 0.1 % (0.0-1.0); EOS # 0.2 10^3/uL (0.0-0.5); EOS % 1.7 % (0.0-3.0); HEMOGLOBIN 13.2 g/dl (12.0-15.5); LYMPH # 3.4 10^3/uL (1.5-5.0); LYMPH % 32.9 % (24.0-44.0); MEAN CORPUSCULAR HEMOGLOBIN 27.1 pg (27.0-33.0); MEAN CORPUSCULAR HGB CONC 32.2 g/dl (32.0-36.5); MEAN CORPUSCULAR VOLUME 84.2 fl (80.0-96.0); MONO # 0.9 10^3/uL (0.0-0.8); MONO % 8.5 % (0.0-5.0); NEUTROPHILS # 5.8 10^3/uL (1.5-8.5); NEUTROPHILS % 56.4 % (36.0-66.0); PLATELET COUNT, AUTOMATED 243 10^3/uL (150-450); RED BLOOD COUNT 4.87 10^6/uL (4.00-5.40); WHITE BLOOD COUNT 10.2 10^3/uL (4.0-10.0)
== END ==
LOC: M WUC 16:15
PROVIDERS: ATTEND Physician Assistant Medical
DX: R19.7 Diarrhea, unspecified (principal)

== ENCOUNTER → 2020-04-14 | Outpatient (REF) | payer BC | LOC: M LAB REF 15:59 | PROVIDERS: ATTEND Physician Assistant Medical | DX: R19.7 Diarrhea, unspecified (principal) ==

== ENCOUNTER 2020-12-11 11:32 | Emergency (ER) | payer BC ==
[~2020-12-11] VITALS: Ht 160 cm; Wt 82.1 kg
[~2020-12-11 11:32] MED LIST changes: +ERGO500029 PO; -VITA50005 PO
[2020-12-11] MEDS ORDERED: ZOLO50TA PO (11:49)
--- NOTE | 2020-12-11 12:34 | REP ---
INDICATION: trauma. COMPARISON: None. TECHNIQUE: Four views FINDINGS: The joint spaces are symmetric and relatively well maintained. There is no evidence of acute fracture or destructive osseous lesion. IMPRESSION: Negative hand. <Electronically signed by Toby Castaneda > 12/11/20 [id number]
[2020-12-11] MEDS ORDERED: IBUP1TAB7 PO (13:25)
[2020-12-11 13:46] VITALS: BP 111/64
== END 2020-12-11 13:47 | disposition home or self-care (01) ==
LOC: M ED 11:32
DX: S60.221A Contusion of right hand, initial encounter (principal); S67.21XA Crushing injury of right hand, initial encounter; W23.1XXA Caught, crushed, jammed, or pinched between stationary objects, initial encounter; Y92.009 Unspecified place in unspecified non-institutional (private) residence as the place of occurrence of the external cause; Y93.9 Activity, unspecified; Y99.9 Unspecified external cause status; I10 Essential (primary) hypertension; E78.5 Hyperlipidemia, unspecified; Z88.1 Allergy status to other antibiotic agents; Z88.2 Allergy status to sulfonamides

== ENCOUNTER → 2021-08-25 | Outpatient (CLI) | payer BC ==
[~2021-08-25] MED LIST changes: +IBUP1TAB7 PO; +ZOLO50TA PO
[2021-08-25 10:16] LABS: ALBUMIN 4.3 GM/DL (3.2-5.2); ALT/SGPT 27 U/L (12-78); BILIRUBIN,TOTAL 0.4 MG/DL (0.2-1.0); BLOOD UREA NITROGEN 23 MG/DL (7-18); CARBON DIOXIDE LEVEL 28 MEQ/L (21-32); CHLORIDE LEVEL 105 MEQ/L (98-107); CHOLESTEROL LEVEL 271 MG/DL (<200); CHOLESTEROL RISK RATIO 5.891 (<5); CREATININE FOR GFR 0.74 MG/DL (0.55-1.30); GLOMERULAR FILTRATION RATE > 60.0 (>51); GLUCOSE, FASTING 86 MG/DL (70-100); HDL CHOLESTEROL 46 MG/DL (>40); LDL CHOLESTEROL 162 MG/DL (<100); NON-HDL-C 225 MG/DL; POTASSIUM SERUM 4.3 MEQ/L (3.5-5.1); SODIUM LEVEL 139 MEQ/L (136-145); TOTAL PROTEIN 7.9 GM/DL (6.4-8.2); TRIGLYCERIDES LEVEL 314 MG/DL (<150)
[2021-08-25 11:12] LABS: FREE T4 0.77 NG/DL (0.76-1.46)
[2021-08-25 11:29] LABS: TOTAL 25(OH) VITAMIN D 22.5 NG/ML (30.0-100.0)
== END ==
LOC: M WUC 08:21
PROVIDERS: ATTEND Nurse Practitioner Family
DX: E03.9 Hypothyroidism, unspecified (principal); E78.2 Mixed hyperlipidemia; E55.9 Vitamin D deficiency, unspecified

== ENCOUNTER → 2021-12-20 | Outpatient (REF) | payer BC ==
[2021-12-20 16:44] LABS: FREE T4 0.88 NG/DL (0.76-1.46); THYROID STIMULATING HORMONE 2.57 uIU/ML (0.358-3.740)
== END ==
LOC: M LABWUC 15:55
PROVIDERS: ATTEND Nurse Practitioner Family
DX: E03.9 Hypothyroidism, unspecified (principal)

== ENCOUNTER → 2022-05-01 | Outpatient (CLI) | payer BC ==
[~2022-05-01] MED LIST changes: -MAXA10TA14 PO; +RIZA10TA64 PO
== END ==
LOC: M WHC 10:44
PROVIDERS: ATTEND Nurse Practitioner Family
DX: Z12.31 Encounter for screening mammogram for malignant neoplasm of breast (principal)

== ENCOUNTER → 2022-05-31 | Outpatient (CLI) | payer BC | LOC: M WUC 11:06 | PROVIDERS: ATTEND Registered Nurse | DX: R05.3 Chronic cough (principal) ==

== ENCOUNTER → 2022-07-02 | Outpatient (CLI) | payer BC ==
[2022-07-02 17:10] LABS: ALBUMIN 4.3 G/DL (3.2-5.2); ALKALINE PHOSPHATASE 87 U/L (46-116); ALT/SGPT 13 U/L (7.0-40); AST/SGOT 20 U/L (<34); BILIRUBIN,TOTAL 0.5 MG/DL (0.3-1.2); BLOOD UREA NITROGEN 14 MG/DL (9-23); CALCIUM LEVEL 9.9 MG/DL (8.5-10.1); CARBON DIOXIDE LEVEL 28 MMOL/L (20-31); CHLORIDE LEVEL 105 MMOL/L (98-107); CREATININE FOR GFR 0.68 MG/DL (0.55-1.30); GLOMERULAR FILTRATION RATE > 60.0 (>51); GLUCOSE, FASTING 86 MG/DL (60-100); POTASSIUM SERUM 4.7 MMOL/L (3.5-5.1); SODIUM LEVEL 141 MMOL/L (136-145); TOTAL PROTEIN 7.3 G/DL (5.7-8.2)
[2022-07-02 17:16] LABS: THYROID STIMULATING HORMONE 2.056 uIU/ML (0.55-4.78)
[2022-07-02 17:22] LABS: FREE T4 0.88 NG/DL (0.89-1.76)
== END ==
LOC: M WUC 11:47
PROVIDERS: ATTEND Registered Nurse
DX: R05.3 Chronic cough (principal); E03.9 Hypothyroidism, unspecified

== ENCOUNTER → 2022-11-14 | Day surgery (SDC) | payer BC ==
[~2022-11-14] VITALS: Ht 160 cm; Wt 81.9 kg
[~2022-11-14] MED LIST changes: +ESTR2TAB3 PO; +IBUP200C25 PO; +LEVO25TA5 PO; +NS 1,000 ML IV ONE; +SERT50TA29 PO; +SYMB16INH INH; +TRAZ-252 PO; +propofoL 200 MG/20 ML VIAL As Ordered ONE
[2022-11-14 13:00] VITALS: BP 148/89
== END | disposition home or self-care (01) ==
LOC: M OPP 11:41
PROVIDERS: ATTEND Surgery
DX: K64.1 Second degree hemorrhoids (principal); R19.5 Other fecal abnormalities; Z80.0 Family history of malignant neoplasm of digestive organs; Z79.1 Long term (current) use of non-steroidal anti-inflammatories (NSAID); Z79.51 Long term (current) use of inhaled steroids; Z79.890 Hormone replacement therapy; Z79.899 Other long term (current) drug therapy; Z88.1 Allergy status to other antibiotic agents; Z88.2 Allergy status to sulfonamides; Z91.018 Allergy to other foods; Z91.048 Other nonmedicinal substance allergy status

== ENCOUNTER → 2022-12-27 | Outpatient (REF) | payer BC ==
[~2022-12-27] MED LIST changes: -NS 1,000 ML IV ONE; -propofoL 200 MG/20 ML VIAL As Ordered ONE
== END ==
LOC: M LAB REF 21:02
PROVIDERS: ATTEND Physician Assistant
DX: M25.50 Pain in unspecified joint (principal)

== ENCOUNTER → 2023-07-25 | Outpatient (CLI) | payer BC ==
[~2023-07-25] MED LIST changes: -ROPI2TAB3 PO; +ROPI2TAB46 PO
[2023-07-25 10:52] LABS: BASO % 0.5 % (0.0-1.0); EOS # 0.4 10^3/uL (0.0-0.5); EOS % 4.6 % (0.0-3.0); HEMATOCRIT 41.8 % (36.0-47.0); HEMOGLOBIN 13.8 g/dl (12.0-15.5); LYMPH # 2.8 10^3/uL (1.5-5.0); LYMPH % 32.6 % (24.0-44.0); MEAN CORPUSCULAR HEMOGLOBIN 28.2 pg (27.0-33.0); MEAN CORPUSCULAR VOLUME 85.5 fl (80.0-96.0); MONO # 0.9 10^3/uL (0.0-0.8); MONO % 10.2 % (2.0-8.0); NEUTROPHILS # 4.5 10^3/uL (1.5-8.5); NEUTROPHILS % 51.6 % (36.0-66.0); PLATELET COUNT, AUTOMATED 243 10^3/uL (150-450); RED BLOOD COUNT 4.89 10^6/uL (4.00-5.40); WHITE BLOOD COUNT 8.7 10^3/uL (4.0-10.0)
[2023-07-25 11:25] LABS: ALBUMIN 4.2 G/DL (3.2-5.2); ALKALINE PHOSPHATASE 86 U/L (46-116); ALT/SGPT 20 U/L (7.0-40); AST/SGOT 17 U/L (<34); BILIRUBIN,TOTAL 0.7 MG/DL (0.3-1.2); BLOOD UREA NITROGEN 18 MG/DL (9-23); CALCIUM LEVEL 9.7 MG/DL (8.5-10.1); CARBON DIOXIDE LEVEL 28 MMOL/L (20-31); CHLORIDE LEVEL 105 MMOL/L (98-107); CHOLESTEROL LEVEL 279 MG/DL (<200); CHOLESTEROL RISK RATIO 5.16 (<5); CREATININE FOR GFR 0.67 MG/DL (0.55-1.30); FREE T4 0.88 NG/DL (0.89-1.76); GLOMERULAR FILTRATION RATE > 60.0 (>51); GLUCOSE, FASTING 91 MG/DL (60-100); LDL CHOLESTEROL 182.4 MG/DL (<100); POTASSIUM SERUM 4.3 MMOL/L (3.5-5.1); SODIUM LEVEL 139 MMOL/L (136-145); THYROID STIMULATING HORMONE 3.426 uIU/ML (0.55-4.78); TOTAL PROTEIN 7.3 G/DL (5.7-8.2); TRIGLYCERIDES LEVEL 213 MG/DL (<150)
[2023-07-25 11:27] LABS: TOTAL 25(OH) VITAMIN D 25.8 NG/ML (20.0-100.0)
== END ==
LOC: M WUC 08:29
PROVIDERS: ATTEND Registered Nurse
DX: E03.9 Hypothyroidism, unspecified (principal); E55.9 Vitamin D deficiency, unspecified; E78.2 Mixed hyperlipidemia; Z00.00 Encounter for general adult medical examination without abnormal findings

== ENCOUNTER → 2023-09-19 | Outpatient (CLI) | payer BC | LOC: M WHC 11:21 | PROVIDERS: ATTEND Specialist | DX: Z12.31 Encounter for screening mammogram for malignant neoplasm of breast (principal) ==

== ENCOUNTER → 2023-10-15 | Outpatient (CLI) | payer BC | LOC: M WHC 08:34 | PROVIDERS: ATTEND Specialist | DX: Z12.31 Encounter for screening mammogram for malignant neoplasm of breast (principal) ==

== ENCOUNTER 2023-11-20 17:42 | Emergency (ER) | payer BC ==
[~2023-11-20] VITALS: Ht 160 cm; Wt 81.8 kg
[2023-11-20] MEDS: IBUPROFEN 600MG TAB PO ONE (19:39)
[2023-11-20] MEDS: ACETAMINOPHEN TAB 650MG DOSE (2X325MG) PO ONE (19:39)
[2023-11-20 19:54] VITALS: BP 132/71; TEMP 97; O2SAT 97
== END 2023-11-20 19:57 | disposition home or self-care (01) ==
LOC: M ED 17:42
DX: S82.61XA Displaced fracture of lateral malleolus of right fibula, initial encounter for closed fracture (principal); W01.0XXA Fall on same level from slipping, tripping and stumbling without subsequent striking against object, initial encounter; R51.9 Headache, unspecified; E03.9 Hypothyroidism, unspecified; R01.1 Cardiac murmur, unspecified; F32.A Depression, unspecified; F41.9 Anxiety disorder, unspecified; Y92.009 Unspecified place in unspecified non-institutional (private) residence as the place of occurrence of the external cause; Y93.89 Activity, other specified; Y99.9 Unspecified external cause status; Z79.899 Other long term (current) drug therapy

== ENCOUNTER → 2023-12-09 | Outpatient (CLI) | payer BC | LOC: M SOG 11:42 | PROVIDERS: ATTEND Orthopaedic Surgery | DX: M25.571 Pain in right ankle and joints of right foot (principal); S82.61XD Displaced fracture of lateral malleolus of right fibula, subsequent encounter for closed fracture with routine healing ==

== ENCOUNTER 2024-03-22 10:59 | Emergency (ER) | payer BC ==
[~2024-03-22] VITALS: Ht 160 cm; Wt 83.1 kg
[2024-03-22 11:01] VITALS: BP 140/65; TEMP 96.6; O2SAT 96
== END 2024-03-22 13:23 | disposition home or self-care (01) ==
LOC: M ED 10:59
DX: S93.401A Sprain of unspecified ligament of right ankle, initial encounter (principal); W19.XXXA Unspecified fall, initial encounter; E03.9 Hypothyroidism, unspecified; F32.9 Major depressive disorder, single episode, unspecified; F41.9 Anxiety disorder, unspecified; Y92.009 Unspecified place in unspecified non-institutional (private) residence as the place of occurrence of the external cause; Y93.89 Activity, other specified; Y99.9 Unspecified external cause status; Z88.2 Allergy status to sulfonamides; Z91.048 Other nonmedicinal substance allergy status; Z79.899 Other long term (current) drug therapy; Z79.1 Long term (current) use of non-steroidal anti-inflammatories (NSAID)

== ENCOUNTER → 2024-03-25 | Outpatient (CLI) | payer BC | LOC: M PLAIMG 12:43 | PROVIDERS: ATTEND Nurse Practitioner Family | DX: M25.571 Pain in right ankle and joints of right foot (principal) ==

== ENCOUNTER → 2024-04-20 | Outpatient (CLI) | payer BC ==
[2024-04-20 15:15] LABS: BASO # 0.1 10^3/uL (0.0-0.2); BASO % 0.7 % (0.0-1.0); EOS # 0.3 10^3/uL (0.0-0.5); HEMATOCRIT 37.9 % (36.0-47.0); HEMOGLOBIN 12.8 g/dl (12.0-15.5); LYMPH # 3.4 10^3/uL (1.5-5.0); LYMPH % 39.8 % (24.0-44.0); MEAN CORPUSCULAR HEMOGLOBIN 28.7 pg (27.0-33.0); MEAN CORPUSCULAR HGB CONC 33.8 g/dl (32.0-36.5); MONO # 0.8 10^3/uL (0.0-0.8); MONO % 9.6 % (2.0-8.0); NEUTROPHILS # 3.9 10^3/uL (1.5-8.5); NEUTROPHILS % 46.5 % (36.0-66.0); PLATELET COUNT, AUTOMATED 244 10^3/uL (150-450); RED BLOOD COUNT 4.46 10^6/uL (4.00-5.40); WHITE BLOOD COUNT 8.4 10^3/uL (4.0-10.0)
[2024-04-20 15:42] LABS: ALBUMIN 4.1 G/DL (3.2-5.2); ALKALINE PHOSPHATASE 87 U/L (35-104); ALT/SGPT 17 U/L (7.0-40); AST/SGOT 12 U/L (<34); BILIRUBIN,TOTAL 0.5 MG/DL (0.3-1.2); BLOOD UREA NITROGEN 11 MG/DL (9-23); CALCIUM LEVEL 9.9 MG/DL (8.5-10.1); CARBON DIOXIDE LEVEL 26 MMOL/L (20-31); CHLORIDE LEVEL 108 MMOL/L (98-107); CREATININE FOR GFR 0.68 MG/DL (0.55-1.30); GLOMERULAR FILTRATION RATE > 60.0 (>51); GLUCOSE, FASTING 77 MG/DL (60-100); POTASSIUM SERUM 4.2 MMOL/L (3.5-5.1); SODIUM LEVEL 141 MMOL/L (136-145); TOTAL PROTEIN 7.5 G/DL (5.7-8.2)
== END ==
LOC: M PLALAB 13:42
PROVIDERS: ATTEND Nurse Practitioner Family
DX: R19.7 Diarrhea, unspecified (principal)

== ENCOUNTER → 2024-04-22 | Outpatient (CLI) | payer BC | LOC: M WHC 11:56 | PROVIDERS: ATTEND Nurse Practitioner Family | DX: R22.41 Localized swelling, mass and lump, right lower limb (principal); M79.89 Other specified soft tissue disorders ==

== ENCOUNTER → 2024-07-01 | Outpatient (CLI) | payer BC ==
[2024-07-01 14:05] LABS: CHOLESTEROL RISK RATIO 5.32 (<5); LDL CHOLESTEROL 178.2 MG/DL (<100)
[2024-07-01 14:07] LABS: FREE T4 0.84 NG/DL (0.89-1.76); THYROID STIMULATING HORMONE 1.792 uIU/ML (0.55-4.78)
[2024-07-01 14:23] LABS: HEMOGLOBIN A1c 5.2 % (4.0-6.0)
== END ==
LOC: M WUC 09:02
PROVIDERS: ATTEND Registered Nurse
DX: E78.2 Mixed hyperlipidemia (principal); E03.9 Hypothyroidism, unspecified

== ENCOUNTER → 2024-07-02 | Outpatient (CLI) | payer BC ==
[2024-07-02 11:33] LABS: BASO % 0.3 % (0.0-1.0); EOS # 0.9 10^3/uL (0.0-0.5); EOS % 9.2 % (0.0-3.0); HEMATOCRIT 38.4 % (36.0-47.0); HEMOGLOBIN 12.7 g/dl (12.0-15.5); LYMPH # 3.4 10^3/uL (1.5-5.0); LYMPH % 35.9 % (24.0-44.0); MEAN CORPUSCULAR HEMOGLOBIN 28.3 pg (27.0-33.0); MEAN CORPUSCULAR HGB CONC 33.1 g/dl (32.0-36.5); MEAN CORPUSCULAR VOLUME 85.7 fl (80.0-96.0); MONO # 0.9 10^3/uL (0.0-0.8); MONO % 9.9 % (2.0-8.0); NEUTROPHILS # 4.2 10^3/uL (1.5-8.5); NEUTROPHILS % 44.4 % (36.0-66.0); PLATELET COUNT, AUTOMATED 221 10^3/uL (150-450); RED BLOOD COUNT 4.48 10^6/uL (4.00-5.40); WHITE BLOOD COUNT 9.4 10^3/uL (4.0-10.0)
[2024-07-02 11:53] LABS: URIC ACID 5.9 MG/DL (3.1-7.8)
[2024-07-02 11:56] LABS: ALBUMIN 4.1 G/DL (3.2-5.2); ALKALINE PHOSPHATASE 85 U/L (35-104); ALT/SGPT 19 U/L (7.0-40); AST/SGOT 14 U/L (<34); BILIRUBIN,TOTAL 0.3 MG/DL (0.3-1.2); BLOOD UREA NITROGEN 16 MG/DL (9-23); C REACTIVE PROTEIN QUANTITATIV < 0.50 MG/DL (<1.0); CALCIUM LEVEL 9.3 MG/DL (8.5-10.1); CARBON DIOXIDE LEVEL 27 MMOL/L (20-31); CHLORIDE LEVEL 111 MMOL/L (98-107); CREATININE FOR GFR 0.71 MG/DL (0.55-1.30); GLOMERULAR FILTRATION RATE > 60.0 (>51); GLUCOSE, FASTING 92 MG/DL (60-100); SODIUM LEVEL 144 MMOL/L (136-145); TOTAL PROTEIN 6.9 G/DL (5.7-8.2)
[2024-07-02 11:59] LABS: RHEUMATOID FACTOR QUANT < 3.5 IU/ML (<14)
[2024-07-02 12:01] LABS: ERYTHROCYTE SEDIMENTATION RATE 5 mm/hr (0-30)
[2024-07-07 00:58] LABS: CYCLIC CITRULLINATED PEPTIDE 65 UNITS (<20)
[2024-07-07 15:47] LABS: ANA PATTERN Nuclear, Homogeneous (NEGATIVE); ANA SCREEN, IFA POSITIVE (NEGATIVE); ANA TITER 1:40 titer (<1:40)
== END ==
LOC: M PLALAB 07:35
PROVIDERS: ATTEND Surgery
DX: Z87.2 Personal history of diseases of the skin and subcutaneous tissue (principal)

== ENCOUNTER → 2024-09-02 | Outpatient (REF) | payer BC ==
[2024-09-02 15:48] LABS: BASO # 0.1 10^3/uL (0.0-0.2); BASO % 0.4 % (0.0-1.0); EOS # 0.3 10^3/uL (0.0-0.5); EOS % 2.4 % (0.0-3.0); HEMATOCRIT 45.4 % (36.0-47.0); HEMOGLOBIN 14.5 g/dl (12.0-15.5); LYMPH # 3.9 10^3/uL (1.5-5.0); LYMPH % 34.2 % (24.0-44.0); MEAN CORPUSCULAR HEMOGLOBIN 28.3 pg (27.0-33.0); MEAN CORPUSCULAR HGB CONC 31.9 g/dl (32.0-36.5); MEAN CORPUSCULAR VOLUME 88.7 fl (80.0-96.0); MONO % 9.1 % (2.0-8.0); NEUTROPHILS # 6.1 10^3/uL (1.5-8.5); NEUTROPHILS % 53.4 % (36.0-66.0); PLATELET COUNT, AUTOMATED 281 10^3/uL (150-450); RED BLOOD COUNT 5.12 10^6/uL (4.00-5.40); WHITE BLOOD COUNT 11.4 10^3/uL (4.0-10.0)
[2024-09-02 15:52] LABS: LDH LACTATE DEHYDROGENASE 241 U/L (120-246)
[2024-09-02 15:53] LABS: ALKALINE PHOSPHATASE 102 U/L (35-104); ALT/SGPT 30 U/L (7.0-40); AST/SGOT 17 U/L (<34); BILIRUBIN,TOTAL 0.7 MG/DL (0.3-1.2); BLOOD UREA NITROGEN 13 MG/DL (9-23); C REACTIVE PROTEIN QUANTITATIV < 0.50 MG/DL (<1.0); CALCIUM LEVEL 10.3 MG/DL (8.5-10.1); CARBON DIOXIDE LEVEL 29 MMOL/L (20-31); CHLORIDE LEVEL 105 MMOL/L (98-107); CPK CREATINE PHOSPHOKINASE 126 U/L (34-145); CREATININE FOR GFR 0.72 MG/DL (0.55-1.30); GLOMERULAR FILTRATION RATE > 60.0 (>51); GLUCOSE, FASTING 81 MG/DL (60-100); POTASSIUM SERUM 4.3 MMOL/L (3.5-5.1); SODIUM LEVEL 143 MMOL/L (136-145); TOTAL PROTEIN 8.6 G/DL (5.7-8.2)
[2024-09-02 15:55] LABS: COMPLEMENT C3 222.9 MG/DL (90.0-170.0); COMPLEMENT C4 40.7 MG/DL (12-36)
[2024-09-02 15:57] LABS: ERYTHROCYTE SEDIMENTATION RATE 13 mm/hr (0-30)
[2024-09-02 16:06] LABS: APPEARANCE, URINE HAZY (CLEAR); BACTERIA, URINE AUTO NEGATIVE (NEGATIVE); BILIRUBIN, URINE AUTO NEGATIVE (NEGATIVE); BLOOD, URINE BLOOD NEGATIVE (NEGATIVE); COLOR, URINE YELLOW (YELLOW); GLUCOSE, URINE (UA) AUTO NEGATIVE (NEGATIVE); KETONE, URINE AUTO NEGATIVE (NEGATIVE); LEUKOCYTE ESTERASE, URINE AUTO NEGATIVE (NEGATIVE); MUCUS, URINE SMALL (NEGATIVE); NITRITE, URINE AUTO NEGATIVE (NEGATIVE); PROTEIN, URINE AUTO NEGATIVE (NEGATIVE); RBC, URINE AUTO 1 /HPF (0-3); SPECIFIC GRAVITY URINE AUTO 1.018 (1.002-1.035); SQUAMOUS EPITHELIAL CELL UR AU 10 /HPF (0-6); UROBILINOGEN, URINE AUTO 0.2 mg/dL (0.0-2.0); WBC, URINE AUTO 3 /HPF (0-3)
[2024-09-02 16:19] LABS: TOTAL PROTEIN,RANDOM URINE 8.3 MG/DL (0.0-14.0)
[2024-09-02 16:24] LABS: CREATININE,RANDOM URINE 145.3 MG/DL
[2024-09-07 16:42] LABS: ALDOLASE 6.2 U/L (< OR = 8.1)
== END ==
LOC: M SFHCRHEU 10:09
PROVIDERS: ATTEND Internal Medicine Rheumatology
DX: R76.8 Other specified abnormal immunological findings in serum (principal); R52 Pain, unspecified; R53.83 Other fatigue

== ENCOUNTER → 2024-09-28 | Outpatient (CLI) | payer BC ==
[2024-09-28 10:50] LABS: ALBUMIN 4.2 G/DL (3.2-5.2); ALKALINE PHOSPHATASE 88 U/L (35-104); ALT/SGPT 26 U/L (7.0-40); AST/SGOT 18 U/L (<34); BILIRUBIN,TOTAL 0.5 MG/DL (0.3-1.2); BLOOD UREA NITROGEN 12 MG/DL (9-23); CARBON DIOXIDE LEVEL 27 MMOL/L (20-31); CHLORIDE LEVEL 106 MMOL/L (98-107); CHOLESTEROL LEVEL 205 MG/DL (<200); CHOLESTEROL RISK RATIO 3.59 (<5); CREATININE FOR GFR 0.71 MG/DL (0.55-1.30); ESTRADIOL < 19.0 PG/ML; FREE T4 0.77 NG/DL (0.89-1.76); GLOMERULAR FILTRATION RATE > 60.0 (>51); GLUCOSE, FASTING 100 MG/DL (60-100); HDL CHOLESTEROL 57.1 MG/DL (>40); LDL CHOLESTEROL 121.3 MG/DL (<100); NON-HDL-C 147.9 MG/DL; POTASSIUM SERUM 4.4 MMOL/L (3.5-5.1); PROGESTERONE < 0.21 NG/ML; SODIUM LEVEL 143 MMOL/L (136-145); THYROID PEROXIDASE ANTIBODY < 28.0 U/ML (<60.0); THYROID STIMULATING HORMONE 2.082 uIU/ML (0.55-4.78); TOTAL PROTEIN 7.2 G/DL (5.7-8.2); TRIGLYCERIDES LEVEL 133 MG/DL (<150)
[2024-09-28 10:59] LABS: HEMOGLOBIN A1c 5.2 % (4.0-6.0)
== END ==
LOC: M PLALAB 07:35
PROVIDERS: ATTEND Registered Nurse
DX: E78.2 Mixed hyperlipidemia (principal); Z79.890 Hormone replacement therapy; E03.9 Hypothyroidism, unspecified

== ENCOUNTER → 2025-02-09 | Outpatient (CLI) | payer BC ==
[~2025-02-09] MED LIST changes: +ATOR1TAB21; +LEVO25TA5; +METH-1164; +PRED20TA PO; +PROG1CAP8; +TIZA10TA; +TRAZ-257; +ZOLO100T
== END ==
LOC: M WUC 09:10
PROVIDERS: ATTEND Physician Assistant
DX: M25.512 Pain in left shoulder (principal)

== ENCOUNTER → 2025-02-15 | Outpatient (CLI) | payer BC ==
[~2025-02-15] MED LIST changes: -ATOR1TAB21; +ATOR1TAB21 PO; +EPIN0.3I11 INJ; +ESTR1DIS3 TOP; +GABA-1172 PO; -LEVO25TA5; -METH-1164; +METH-1164 PO; +PROG1CAP9 PO; -TRAZ-257; +TRAZ-257 PO; -ZOLO100T; +ZOLO100T PO
[2025-02-15 13:36] LABS: ALT/SGPT 21 U/L (7.0-40); AST/SGOT 22 U/L (<34); CALCIUM LEVEL 9.9 MG/DL (8.5-10.1); CARBON DIOXIDE LEVEL 28 MMOL/L (20-31); CHLORIDE LEVEL 105 MMOL/L (98-107); CREATININE FOR GFR 0.85 MG/DL (0.55-1.30); ESTRADIOL 20.0 PG/ML; FREE T4 0.80 NG/DL (0.89-1.76); GLOMERULAR FILTRATION RATE 79.9 (>51); POTASSIUM SERUM 4.6 MMOL/L (3.5-5.1); SODIUM LEVEL 143 MMOL/L (136-145); THYROID PEROXIDASE ANTIBODY < 28.0 U/ML (<60.0)
[2025-02-15 13:39] LABS: BASO # 0.0 10^3/uL (0.0-0.2); BASO % 0.4 % (0.0-1.0); EOS # 0.2 10^3/uL (0.0-0.5); EOS % 2.4 % (0.0-3.0); LYMPH # 3.4 10^3/uL (1.5-5.0); LYMPH % 36.1 % (24.0-44.0); MONO # 1.0 10^3/uL (0.0-0.8); MONO % 10.3 % (2.0-8.0); NEUTROPHILS # 4.8 10^3/uL (1.5-8.5); NEUTROPHILS % 50.3 % (36.0-66.0); PLATELET COUNT, AUTOMATED 229 10^3/uL (150-450)
[2025-02-15 14:02] LABS: PROGESTERONE 11.04 NG/ML
== END ==
LOC: M PLALAB 09:50
PROVIDERS: ATTEND Registered Nurse
DX: Z79.890 Hormone replacement therapy (principal); M54.2 Cervicalgia; E03.9 Hypothyroidism, unspecified

== ENCOUNTER 2025-02-22 20:28 | Observation (INO) | payer BC ==
[~2025-02-22] VITALS: Ht 160 cm; Wt 85.6 kg
[~2025-02-22 20:28] MED LIST changes: -EPIN0.3I11 INJ; -ESTR1DIS3 TOP; -GABA-1172 PO; -PROG1CAP9 PO
[2025-02-22] MEDS ORDERED: ISOVUE-370 76% 100 ML VIAL As Ordered ONE (20:45)
[2025-02-22 21:05] LABS: BASO # 0.1 10^3/uL (0.0-0.2); BASO % 0.4 % (0.0-1.0); EOS # 0.4 10^3/uL (0.0-0.5); EOS % 3.3 % (0.0-3.0); LYMPH # 4.5 10^3/uL (1.5-5.0); LYMPH % 38.4 % (24.0-44.0); MONO # 1.2 10^3/uL (0.0-0.8); MONO % 10.3 % (2.0-8.0); NEUTROPHILS # 5.6 10^3/uL (1.5-8.5); NEUTROPHILS % 47.2 % (36.0-66.0); PLATELET COUNT, AUTOMATED 225 10^3/uL (150-450)
[2025-02-22 21:18] LABS: INR 0.88
[2025-02-22] MEDS: ASPIRIN 81 MG CHEWABLE TABLET PO ONE (21:23)
[2025-02-22 22:01] LABS: ALT/SGPT 21 U/L (7.0-40); AST/SGOT 23 U/L (<34); CALCIUM LEVEL 9.6 MG/DL (8.5-10.1); CARBON DIOXIDE LEVEL 27 MMOL/L (20-31); CHLORIDE LEVEL 105 MMOL/L (98-107); CREATININE FOR GFR 1.28 MG/DL (0.55-1.30); GLOMERULAR FILTRATION RATE 48.9 (>51); MAGNESIUM LEVEL 1.9 MG/DL (1.8-2.4); POTASSIUM SERUM 4.1 MMOL/L (3.5-5.1); SODIUM LEVEL 142 MMOL/L (136-145)
[2025-02-22 22:44] LABS: KETONE, URINE AUTO RFX NEGATIVE (NEGATIVE); LEUKOCYTE ESTERASE UR AUTO RFX NEGATIVE (NEGATIVE); MUCUS, URINE RFX SMALL (NEGATIVE); NITRITE, URINE AUTO RFX NEGATIVE (NEGATIVE); RBC, URINE AUTO RFX 1 /HPF (0-3); SQUAM EPITHELIAL CELL UR AURFX 1 /HPF (0-6); WBC, URINE AUTO RFX 1 /HPF (0-3)
[2025-02-22] MEDS: NS 500 ML IV ONE (23:15)
[2025-02-22] MEDS: NS (Normal Saline) 0.9% 1,000 ML IV ONE (23:50)
[2025-02-22] MEDS: dexAMETHasone 4 MG/ML 1 ML VIAL IV ONE (23:58)
[2025-02-23] MEDS: KETOROLAC 30 MG/ML 1 ML VIAL IV ONE
[2025-02-23] MEDS: ACETAMINOPHEN *IV* 1,000 MG in IV 1 EA IV ONE
[2025-02-23] MEDS: MAG SULF 1GM/100ML (MAG RUN) 1 GM in IV 1 EA IV ONE (00:01)
[2025-02-23 02:14] LABS: FREE T4 0.85 NG/DL (0.89-1.76); LUTEINIZING HORMONE 2.4 mIU/ML
[2025-02-23 03:38] LABS: CORTISOL BASELINE 6.3 UG/DL (4.3-22.4)
[2025-02-23 06:53] LABS: PLATELET COUNT, AUTOMATED 211 10^3/uL (150-450)
[2025-02-23 07:15] LABS: CALCIUM LEVEL 9.6 MG/DL (8.5-10.1); CARBON DIOXIDE LEVEL 23.0 MMOL/L (20-31); CHLORIDE LEVEL 110.0 MMOL/L (98-107); CREATININE FOR GFR 0.95 MG/DL (0.55-1.30); GLOMERULAR FILTRATION RATE 69.9 (>51); MAGNESIUM LEVEL 2.3 MG/DL (1.8-2.4); POTASSIUM SERUM 4.7 MMOL/L (3.5-5.1); SODIUM LEVEL 144.0 MMOL/L (136-145)
[2025-02-23] MEDS ORDERED: ESTR1DIS3 TOP (07:58)
[2025-02-23] MEDS ORDERED: EPIN0.3I11 INJ (07:58)
[2025-02-23] MEDS ORDERED: PROG1CAP9 PO (07:58)
[2025-02-23] MEDS ORDERED: GABA-1172 PO (07:58)
[2025-02-23] MEDS ORDERED: HOME MED LIST COMPLETE! XX SCH (08:00)
[2025-02-23] MEDS: ACETAMINOPHEN 325 MG TAB PO PRN (13:11)
[2025-02-23] MEDS: HEPARIN SOD 5000 UNITS/ML 1 ML VIAL/SYRINGE SC SCH (14:20)
[2025-02-23] MEDS ORDERED: traZODone 100 MG TAB PO PRN (14:35)
[2025-02-23] MEDS: GABAPENTIN 300 MG CAP PO SCH (16:08)
[2025-02-23] MEDS ORDERED: PROHANCE 279.3MG/ML 5ML VIAL As Ordered ONE (17:56)
[2025-02-23] MEDS ORDERED: SERTRALINE 100 MG TAB PO SCH (21:00)
[2025-02-23] MEDS ORDERED: ATORVASTATIN 20 MG TAB PO SCH (21:00)
[2025-02-23 21:28] VITALS: BP 138/67; TEMP 97.3; O2SAT 96
[2025-02-24] MEDS ORDERED: LEVOTHYROXINE PO SCH (06:00)
[2025-02-26 09:06] LABS: ADRENOCORTICOTROPHIC HORMONE < 5 pg/mL (6-50)
[2025-02-27 14:41] LABS: IFG Z SCORE FEMALE -1.1 SD (-2.0 - +2.0); SOMATOMEDIN-C INSULIN GROWTH. 76 ng/mL (50-317)
== END 2025-02-23 21:27 | disposition home or self-care (01) ==
LOC: M ED 20:28 → M ED INP 20:29
PROVIDERS: ADMIT Student in an Organized Health Care Education/Training Program; ATTEND Student in an Organized Health Care Education/Training Program
DX: G43.809 Other migraine, not intractable, without status migrainosus (principal); D35.2 Benign neoplasm of pituitary gland; D15.1 Benign neoplasm of heart; E03.9 Hypothyroidism, unspecified; I10 Essential (primary) hypertension; M79.7 Fibromyalgia; E78.5 Hyperlipidemia, unspecified; Z79.899 Other long term (current) drug therapy; F32.A Depression, unspecified; F41.9 Anxiety disorder, unspecified
CPT/HCPCS: 36415; 70450; 70496; 70498; 70544; 70551; 70553; 71045; 80047; 80048; 80076; 81001; 82024; 82533; 83001; 83002; 83735; 84145; 84305; 84439; 84443; 84481; 85025; 85027; 85610; 85730; 92610; 93005; 93041; 93306; 94760; 96361; 96372; 96374; 96375; 97161; 99285; A9576; J0131; J1100; J1885; J2765; J3475; Q9967

== ENCOUNTER → 2025-03-16 | Outpatient (CLI) | payer BC ==
[~2025-03-16] MED LIST changes: +EPIN0.3I11 INJ; +ESTR1DIS3 TOP; +GABA-1172 PO; +PROG1CAP9 PO
[2025-03-16 11:09] LABS: ALT/SGPT 21.0 U/L (7.0-40); AST/SGOT 21.0 U/L (<34); CHOLESTEROL LEVEL 176.0 MG/DL (<200); CHOLESTEROL RISK RATIO 4.29 (<5); CPK CREATINE PHOSPHOKINASE 95.0 U/L (34-145); LDL CHOLESTEROL 71.2 MG/DL (<100); NON-HDL-C 135.0 MG/DL; TRIGLYCERIDES LEVEL 319.0 MG/DL (<150)
== END ==
LOC: M PLALAB 08:47
PROVIDERS: ATTEND Internal Medicine Cardiovascular Disease
DX: E78.2 Mixed hyperlipidemia (principal)

== ENCOUNTER → 2025-04-07 | Outpatient (CLI) | payer BC ==
[2025-04-07 14:48] LABS: BASO # 0.1 10^3/uL (0.0-0.2); BASO % 0.6 % (0.0-1.0); EOS # 0.3 10^3/uL (0.0-0.5); EOS % 3.4 % (0.0-3.0); LYMPH # 3.8 10^3/uL (1.5-5.0); LYMPH % 39.2 % (24.0-44.0); MONO # 1.0 10^3/uL (0.0-0.8); MONO % 10.7 % (2.0-8.0); NEUTROPHILS # 4.4 10^3/uL (1.5-8.5); NEUTROPHILS % 45.6 % (36.0-66.0); PLATELET COUNT, AUTOMATED 231 10^3/uL (150-450)
[2025-04-07 15:07] LABS: CALCIUM LEVEL 9.5 MG/DL (8.5-10.1); CARBON DIOXIDE LEVEL 26 MMOL/L (20-31); CHLORIDE LEVEL 105 MMOL/L (98-107); CREATININE FOR GFR 0.75 MG/DL (0.55-1.30); GLOMERULAR FILTRATION RATE > 90.0 (>51); POTASSIUM SERUM 4.5 MMOL/L (3.5-5.1); SODIUM LEVEL 143 MMOL/L (136-145)
== END ==
LOC: M PLALAB 10:40
PROVIDERS: ATTEND Internal Medicine Cardiovascular Disease
DX: I34.0 Nonrheumatic mitral (valve) insufficiency (principal)